=== PATIENT | male | born 1990 | race Caucasian/White ===

== ENCOUNTER → 2022-08-29 09:49 | Outpatient (CLI) | payer BC, SELFPAY ==
--- NOTE | ~2022-08-29 | XR_ITS ---
EXAMINATION:XR cervical spine min 6V DATE: 08/29/2022 10:11 INDICATION: Neck pain TECHNIQUE: AP, lateral in neutral, flexion, extension, bilateral oblique, and odontoid views of the c ervical spine are provided. COMPARISON: None FINDINGS: Alignment is normal. There is no hypermobility with flexion or extension. The odontoid proc ess is intact. No fracture is identified. Vertebral body heights and disk spaces are normal. Preverte bral soft tissues are normal. Small degenerative endplate osteophytes project from the C5 and C6 vert ebral bodies. IMPRESSION: 1. Mild cervical spondylosis without acute findings. Reviewed, dictated and finalized at location B. [employer]
== END ==
PROVIDERS: PCP Nurse Practitioner Family; Visit Provider Nurse Practitioner Family
DX: M47.892 Other spondylosis, cervical region (principal)
CPT/HCPCS: 72052

== ENCOUNTER 2022-10-10 16:13 | Outpatient (CLI) | payer BC, SELFPAY ==
--- NOTE | ~2022-10-10 | MR_ITS ---
EXAMINATION: MR cervical spine wo con DATE: 10/10/2022 17:03 INDICATION: Radicular neck pain. TECHNIQUE: Magnetic resonance imaging (MRI) of the cervical spine was performed without intravenous c ontrast. Sequences included sagittal T2-weighted FSE, sagittal T2-weighted FS FSE, sagittal T1-weight ed FSE, axial MERGE, and axial T2-weighted FSE. COMPARISON: Cervical spine radiographs 08/29/2022 FINDINGS: There is mild kyphosis of cervical spine. There is mild chronic height loss of T1 and T3 ve rtebral bodies. Intervertebral disc heights are normal. The spinal cord signal intensity is normal. T he following disc levels are specifically discussed: C2-C3: The disc does not extend beyond the endplate margin. There is no uncovertebral joint osteoarth ritis. There is mild bilateral facet joint osteoarthritis. There is no neural foraminal stenosis. The re is no central canal stenosis. C3-C4: The disc does not extend beyond the endplate margin. There is no uncovertebral joint osteoarth ritis. There is mild right and moderate left facet joint osteoarthritis. There is no neural foraminal stenosis. There is no central canal stenosis. C4-C5: The disc does not extend beyond the endplate margin. There is no uncovertebral joint osteoarth ritis. There is mild bilateral facet joint osteoarthritis. There is no neural foraminal stenosis. The re is no central canal stenosis. C5-C6: There is a central protrusion. There is no uncovertebral joint osteoarthritis. There is no fac et joint osteoarthritis. There is no neural foraminal stenosis. There is mild central canal stenosis. C6-C7: There is a central protrusion. There is mild bilateral uncovertebral joint osteoarthritis. The re is mild bilateral facet joint osteoarthritis. There is no neural foraminal stenosis. There is mild central canal stenosis. C7-T1: The disc does not extend beyond the endplate margin. There is no uncovertebral joint osteoarth ritis. There is mild bilateral facet joint osteoarthritis. There is no neural foraminal stenosis. The re is no central canal stenosis. IMPRESSION: 1. Mild cervical spondylosis. Reviewed, dictated and finalized at location A.
== END 2022-10-10 16:14 | disposition home or self-care (01) ==
PROVIDERS: PCP Family Medicine; Visit Provider Family Medicine
DX: M47.22 Other spondylosis with radiculopathy, cervical region (principal)
CPT/HCPCS: 72141

== ENCOUNTER 2023-05-15 19:00 | Emergency (ER) | payer BC, SELFPAY ==
[2023-05-15 19:08] VITALS: BP 136/65; PULSE 84; RESP 16; TEMP 37.8; O2SAT 99
--- NOTE | 2023-05-15 19:30 | ED.URI ---
HPI - URI/Sore Throat General Chief Complaint: Upper Respiratory Infection Stated Complaint: sore throat,fever Time Seen by Provider: 05/15/23 19:26 Source: patient and RN notes reviewed Mode of arrival: ambulatory Limitations: no limitations History of Present Illness HPI Narrative: Patient presents today complaining of sore throat, congestion, body aches, and slight cough. Symptoms began today. Currently rates his pain 6/10 and has been taking Mucinex without much relief. Denies known sick contacts. Related Data Allergies Allergy/AdvReac Type Severity Reaction Status Date / Time No Known Allergies Allergy Verified 08/29/22 07:49 Review of Systems Review of Systems: CONSTITUTIONAL: Denies fever, chills, or sweats.+ body aches EYES: Denies visual changes, redness, or discharge. ENT: Denies rhinorrhea, or otalgia.+ sore throat, congestion CARDIOVASCULAR: Denies chest pain, palpitations, or edema. RESPIRATORY: Denies dyspnea.+ slight cough GASTROINTESTINAL: Denies abdominal pain, nausea, vomiting, or diarrhea. GENITOURINARY: Denies dysuria or hematuria. SKIN: Denies rash, itching, or wounds. MUSCULOSKELETAL: Denies back pain, joint pain, or myalgia. NEUROLOGIC: Denies headache, numbness, tingling, or weakness. PSYCH: Denies depression or anxiety. [facility]LY [facility] Past Medical History Medical History BMI 28.0-28.9,adult Cervical spondylosis with radiculopathy Family History Family History Father No problems noted. Mother No problems noted. Sibling No problems noted. Social History Social History Smoking status: Never smoker Smoking end date: 07/13/15 Alcohol intake: never Substance use: never Lack of Transportation: No Lack of Food: Never True Current Housing: I Have Housing Concerned About Future Housing: No Difficulty Paying Gas/Electric Bills: No Difficulty Paying for Meds: No Currently Unemployed: No Education: Master's Degree or Higher Difficulty w/ Childcare or Family Care: No Comments At time of signature, I have reviewed and agree with nursing past medical, surgical, social and family history unless otherwise noted. Please see nursing chart for further information. There is no relevant family history pertinent to the presenting complaint Exam Narrative: GENERAL: Mildly ill appearing, well-nourished, and in no acute distress. HEAD: Normocephalic, atraumatic. EYES: EOMI. No redness or drainage. Conjunctivae normal. ENT: Mucous membranes pink and moist. Nares congested. No rhinorrhea. TMs normal bilaterally. Throat erythematous without edema or exudate. Uvula midline. NECK: Normal AROM. Supple. No lymphadenopathy. CHEST: No respiratory distress. Clear to auscultation. HEART: Regular rate and rhythm. No murmur appreciated. Normal peripheral pulses. EXTREMITIES: Normal range of motion. No edema. SKIN: Warm, dry, no rash. Capillary refill normal. Normal skin turgor. NEURO: No focal deficits. Alert and oriented x3. Gait steady. PSYCH: Normal affect. No signs of depression or anxiety. Course Course Level of Care: Express Care Visit Vital Signs Vital signs: Vital Signs Temperature 100.0 F H 05/15/23 19:08 Pulse Rate 84 05/15/23 19:08 Respiratory Rate 16 05/15/23 19:08 Blood Pressure 136/65 05/15/23 19:08 Pulse Oximetry 99 05/15/23 19:08 Oxygen Delivery Room Air 05/15/23 19:08 Temperature 100.0 F H 05/15/23 19:08 Pulse Rate 84 05/15/23 19:08 Respiratory Rate 16 05/15/23 19:08 Blood Pressure 136/65 05/15/23 19:08 Pulse Oximetry 99 05/15/23 19:08 Oxygen Delivery Room Air 05/15/23 19:08 Reviewed MDM - URI/Sore Throat MDM Narrative Medical decision making narrative: Rapid strep negative. Culture pending. Influenza neg
== END 2023-05-15 19:54 | disposition home or self-care (01) ==
PROVIDERS: Emergency Provider Nurse Practitioner; PCP Family Medicine
DX: J06.9 Acute upper respiratory infection, unspecified (principal); M47.22 Other spondylosis with radiculopathy, cervical region
CPT/HCPCS: 87081; 87804; 87880; 99213; G0463

== ENCOUNTER 2024-10-12 10:00 | Outpatient (CLI) | payer BC, SELFPAY ==
--- NOTE | ~2024-10-12 | CT_ITS ---
EXAMINATION: CT sinus wo con DATE: 10/12/2024 10:10 INDICATION: Disorder of the nose and nasal sinuses TECHNIQUE: Computed tomography (CT) of the paranasal sinuses was performed without intravenous contra st. The dose-length product was 402.94 mGy-cm. Automated exposure control and iterative reconstructio n technique were employed. COMPARISON: No prior studies for comparison. FINDINGS: There is underdevelopment of the left maxillary sinus with mucosal thickening. There is mil d mucoperiosteal reaction. There are surgical changes consistent with resection of the left ostiomeat al unit. No significant nasal septal deviation. There is mild mucosal thickening of the ethmoid sinus es. Mastoids are pneumatized. IMPRESSION: 1. Moderate sinus disease primarily involving the left maxillary sinus with mild mucoperiosteal react ion. Reviewed, dictated and finalized at location A. IMPRESSION: 1. Moderate sinus disease primarily involving the left maxillary sinus with mil d mucoperiosteal reaction.
== END 2024-10-12 10:01 | disposition home or self-care (01) ==
LOC: GOSHIMG 10:00
PROVIDERS: PCP Otolaryngology Otolaryngology/Facial Plastic Surgery; Visit Provider Otolaryngology Otolaryngology/Facial Plastic Surgery
DX: J34.9 Unspecified disorder of nose and nasal sinuses (principal); J32.0 Chronic maxillary sinusitis
CPT/HCPCS: 70486

== ENCOUNTER 2024-11-29 09:20 | Outpatient (CLI) | payer BC, SELFPAY ==
--- NOTE | ~2024-11-29 | MR_ITS ---
MRI of the cervical spine Clinical History: Cervicalgia Technique: Axial T2-weighted and gradient images, and sagittal T1-weighted, T2-weighted, and STIR molly ges were acquired. COMPARISON: 10/10/2022 Findings: There is no fracture or subluxation of the cervical spine. Vertebral bodies maintain normal height and alignment. No bone marrow signal abnormality seen. No significant disc bulge or herniation seen at any cervical level. No spinal canal stenosis, cord co mpression, or neural foraminal narrowing evident in the cervical spine. No abnormal signal seen in the spinal cord. Paravertebral soft tissues are unremarkable. Impression: No significant abnormality seen. Reviewed, dictated and finalized at location . Impression: No significant abnormality seen.
== END 2024-11-29 09:21 | disposition home or self-care (01) ==
LOC: GOSHIMG 09:22
PROVIDERS: PCP Chiropractor Rehabilitation; Visit Provider Nurse Practitioner Family
DX: M54.2 Cervicalgia (principal)
CPT/HCPCS: 72141